=== PATIENT | male | born 1980 | race American Indian/Alaskan Native ===

== ENCOUNTER 2018-01-14 16:47 | Emergency (ER) | payer MEDICAID ==
[2018-01-14 17:23] VITALS: BP 137/89
--- NOTE | 2018-01-14 19:48 | Emergency Department Report ---
ED Back Pain/Injury HPI - General Chief Complaint: Back Pain/Injury Stated Complaint: BACK PAIN Time Seen by Provider: 01/14/18 19:40 Source: patient, EMS Limitations: No Limitations - History of Present Illness Initial Comments: 37-year-old morbid obese male comes in per EMS stating he was unremarkable S trying to get to his orthopedist M.D. and got off on the wrong stop and began complaining of upper back pain as he was walking. Patient has a past medical history of ADHD, borderline diabetes hypertension and CHF. Patient reports that he is on metoprolol lisinopril Lasix. He denies any recent falls or recent traumas. He reports he does suffer from chronic back pain for years. He was going to the orthopedist to be stated for a electric wheelchair. MD Complaint: back pain -: year(s) Similar Symptoms Previously: Yes Severity scale (0 -10): 10 Quality: dull, aching Consistency: intermittent Improves With: other (rest) Worsens With: movement Associated Symptoms: denies other symptoms - Related Data Previous Rx's Medication Instructions Recorded Last Taken Type Ibuprofen [Motrin 800 MG tab] 800 mg PO Q8HR PRN #30 tablet 01/14/18 Unknown Rx Allergies Allergy/AdvReac Type Severity Reaction Status Date / Time No Known Allergies Allergy Verified 01/14/18 17:23 ED Review of Systems ROS: Stated complaint: BACK PAIN Other details as noted in HPI Musculoskeletal: back pain ED Past Medical Hx - Past Medical History Hx Hypertension: Yes Hx Diabetes: Yes (borderline) Additional medical history: CHF, - Surgical History Past Surgical History?: No - Social History Smoking Status: Current Every Day Smoker - Medications Home Medications: Home Medications Medication Instructions Recorded Confirmed Last Taken Type Ibuprofen [Motrin 800 MG tab] 800 mg PO Q8HR PRN #30 tablet 01/14/18 Unknown Rx ED Physical Exam - General Limitations: No Limitations General appearance: alert, in no apparent distress - ENT ENT exam: Present: mucous membranes moist - Neck Neck exam: Present: full ROM. Absent: lymphadenopathy - Respiratory Respiratory exam: Present: normal lung sounds bilaterally. Absent: respiratory distress - Cardiovascular Cardiovascular Exam: Present: regular rate, normal rhythm. Absent: systolic murmur, diastolic murmur, rubs, gallop - Back Exam Back exam: Present: tenderness - Neurological Exam Neurological exam: Present: alert (made thoracic tenderness), oriented X3 ED Course Vital Signs 01/14/18 17:20 Temperature 98.4 F Pulse Rate 75 Respiratory 18 Rate Blood Pressure 137/89 O2 Sat by Pulse 96 Oximetry ED Medical Decision Making - Medical Decision Making Patient has been evaluated by this provider in fast track. Patient complains of chronic back pain with no recent trauma. Patient is morbid obese with a BMI of 65 weight of 451. Discussed the patient I will give him a Toradol injection and he will be discharged on ibuprofen with follow-up to his orthopedist. Critical care attestation.: If time is entered above; I have spent that time in minutes in the direct care of this critically ill patient, excluding procedure time. ED Disposition Clinical Impression: Lumbago Qualifiers: Chronicity: chronic Back pain laterality: bilateral Sciatica presence: unspecified whether sciatica present Qualified Code(s): M54.5 - Low back pain; G89.29 - Other chronic pain Disposition: - TO HOME OR SELFCARE Is pt being admited?: No Does the pt Need Aspirin: No Condition: Stable Instructions: Chronic Back Pain (ED) Additional Instructions: Please take pain medication as needed. It's very important for you to follow- up with orthopedist as they're the ones that will manage her chronic back pain. Prescriptions: Ibuprofen [Motrin 800 MG tab] 800 mg PO Q8HR PRN #30 tablet PRN Reason: Pain , Severe (7-10) Referrals: PRIMARY MD COOKIE [Primary Care Provider] - 3-5 Days ZIGGY LUND MD [Staff Physician] - 3-5 Days
[2018-01-14] MEDS ORDERED: TORADOL IM ONE (19:49)
== END 2018-01-14 20:36 | disposition home or self-care (01) ==
LOC: ED 16:47
DX: G89.29 Other chronic pain (principal); M54.5 Low back pain; E11.9 Type 2 diabetes mellitus without complications; I50.9 Heart failure, unspecified; F17.200 Nicotine dependence, unspecified, uncomplicated
CPT/HCPCS: 96372; 99283; J1885

== ENCOUNTER 2018-01-31 10:56 | Emergency (ER) | payer MEDICAID, MEDICARE ==
[2018-01-31 12:03] LABS: Basophils % (Auto) 0.3 % (0.0-1.8); Eosinophils # (Auto) 0.1 K/mm3 (0.0-0.4); Eosinophils % (Auto) 0.9 % (0.0-4.3); Hematocrit 35.2 % (35.5-45.6); Hemoglobin 11.3 gm/dl (11.8-15.2); Lymphocytes # (Auto) 1.1 K/mm3 (1.2-5.4); Lymphocytes % (Auto) 15.8 % (13.4-35.0); Mean Corpuscular HGB Conc 32 % (32-34); Mean Corpuscular Volume 73 fl (84-94); Monocytes # (Auto) 0.8 K/mm3 (0.0-0.8); Monocytes % (Auto) 11.5 % (0.0-7.3); Platelet Count 174 K/mm3 (140-440); Red Blood Count 4.86 M/mm3 (3.65-5.03); Red Cell Distribution Width 18.9 % (13.2-15.2)
[2018-01-31 12:19] LABS: BUN/Creatinine Ratio 20; Blood Urea Nitrogen 12 mg/dL (9-20); Hemolysis Index 9; Mean Corpuscular Hemoglobin 23 pg (28-32)
--- NOTE | 2018-01-31 12:41 | XRay Report ---
Chest 2 score History: Shortness of breath. Findings: Marked cardiomegaly. Trachea is midline. No consolidation, pneumothorax or pleural effusion. Impression: Marked cardiomegaly. No acute lung changes.
--- NOTE | 2018-01-31 14:33 | Emergency Department Report ---
ED General Adult HPI - General Chief complaint: Dyspnea/Respdistress Stated complaint: GIGI Time Seen by Provider: 01/31/18 13:03 Source: patient, EMS (ems notes not available at time of chart dictation), RN notes reviewed Mode of arrival: Stretcher Limitations: Other (patient is a poor historian) - History of Present Illness Initial comments: This is a 37-year-old male, who is unknown to this provider, reports a past medical history of borderline diabetes, hypertension and congestive heart failure, does not know his ejection fraction, thinks he may have sleep apnea but is not sure, believes that he is asleep study performed in [place] but doesn't know what the results are, and 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 Presents to the ER with a complaint of shortness of breath. It is painless. It is intermittent. It been on and off for a few weeks. Patient reports no exacerbating or relieving factors. He denies DVT, pulmonary embolus risk factors. He denies pain. He admits to cough. Denies cocaine use. -: Gradual Consistency: intermittent Improves with: none Worsens with: none Associated Symptoms: cough, shortness of breath. denies: confusion, chest pain , diaphoresis, fever/chills, headaches, loss of appetite, malaise, nausea/ vomiting, rash, seizure, syncope, weakness - Related Data Previous Rx's Medication Instructions Recorded Last Taken Type Ibuprofen [Motrin 800 MG tab] 800 mg PO Q8HR PRN #30 tablet 01/14/18 Unknown Rx Furosemide [Lasix] 20 mg PO QDAY #30 tablet 01/31/18 Unknown Rx Allergies Allergy/AdvReac Type Severity Reaction Status Date / Time aspirin Allergy Vomiting Verified 01/31/18 11:08 ED Review of Systems ROS: Stated complaint: GIGI Other details as noted in HPI Constitutional: denies: fever Eyes: denies: eye discharge Respiratory: shortness of breath Cardiovascular: edema. denies: chest pain Gastrointestinal: denies: abdominal pain Genitourinary: denies: dysuria Musculoskeletal: arthralgia Skin: denies: lesions Neurological: denies: weakness ED Past Medical Hx - Past Medical History Hx Hypertension: Yes Hx Diabetes: Yes (borderline) Additional medical history: CHF, - Social History Smoking Status: Former Smoker Substance Use Type: None - Medications Home Medications: Home Medications Medication Instructions Recorded Confirmed Last Taken Type Ibuprofen [Motrin 800 MG tab] 800 mg PO Q8HR PRN #30 tablet 01/14/18 Unknown Rx Furosemide [Lasix] 20 mg PO QDAY #30 tablet 01/31/18 Unknown Rx ED Physical Exam - General Limitations: No Limitations General appearance: alert, in no apparent distress, obese - Head Head exam: Present: atraumatic, normocephalic - Eye Eye exam: Present: normal appearance, EOMI. Absent: nystagmus - ENT ENT exam: Present: normal exam, normal orophraynx, mucous membranes moist, normal external ear exam - Neck Neck exam: Present: normal inspection, full ROM. Absent: tenderness, meningismus - Respiratory Respiratory exam: Present: decreased breath sounds. Absent: respiratory distress - Cardiovascular Cardiovascular Exam: Present: regular rate, normal rhythm, normal heart sounds. Absent: bradycardia, tachycardia, irregular rhythm, systolic murmur, diastolic murmur, rubs, gallop - GI/Abdominal GI/Abdominal exam: Present: soft, normal bowel sounds. Absent: distended, tenderness, guarding, rebound, rigid, pulsatile mass - Rectal Rectal exam: Present: deferred - Extremities Exam Extremities exam: Present: normal inspection, full ROM (compartments are soft. There is no long bony tenderness. The pelvis is stable.), normal capillary refill, pedal edema, other (1+ pitting edema in the bilateral lower extremities. There is no palpable cord. 2+ pulses noted in the bilateral upper , lower extremities.). Absent: calf tenderness - Back Exam Back exam: Present: normal inspection, full ROM. Absent: paraspinal tenderness , vertebral tenderness - Neurological Exam Neurological exam: Present: alert, oriented X3, CN II-XII intact, normal gait, other (Extraocular movements intact. Tongue midline. No facial droop. Facial sensation intact to light touch in the V1, V2, V3 distribution bilaterally. 5 and 5 strength in 4 extremities.. Sensation is intact to light touch in 4 extremities.). Absent: motor sensory deficit - Psychiatric Psychiatric exam: Present: normal affect, normal mood - Skin Skin exam: Present: warm, dry, intact, normal color. Absent: rash ED Course Vital Signs 01/31/18 11:14 Temperature 97.9 F Pulse Rate 71 Respiratory 20 Rate Blood Pressure 139/81 O2 Sat by Pulse 97 Oximetry ED Medical Decision Making - Lab Data Result diagrams: 01/31/18 11:33 01/31/18 11:33 Vital Signs 01/31/18 11:14 Temperature 97.9 F Pulse Rate 71 Respiratory 20 Rate Blood Pressure 139/81 O2 Sat by Pulse 97 Oximetry Labs 01/31/18 01/31/18 11:33 11:33 WBC 7.2 RBC 4.86 Hgb 11.3 L Hct 35.2 L MCV 73 L MCH 23 L MCHC 32 RDW 18.9 H Plt Count 174 Lymph % (Auto) 15.8 [place] % (Auto) 11.5 H Eos % (Auto) 0.9 Baso % (Auto) 0.3 Lymph # 1.1 L [place] # 0.8 Eos # 0.1 Baso # 0.0 Seg Neutrophils % 71.5 H Seg Neutrophils # 5.1 Sodium 143 Potassium 4.0 Chloride 104.4 Carbon Dioxide 27 Anion Gap 16 BUN 12 Creatinine 0.6 L Estimated GFR > 60 BUN/Creatinine Ratio 20 Glucose 79 Calcium 9.0 NT-Pro-B Natriuret Pep 592.5 H - EKG Data -: EKG Interpreted by Me - EKG Data 01/31/18 14:35 Normal sinus, 78 bpm, normal axis, premature ventricular contractions, QTC prolonged, abnormal EKG, not a STEMI. - Radiology Data Radiology results: report reviewed, image reviewed X-ray of the chest is negative for acute disease, cardiomegaly is appreciated, no obvious infiltrates noted. No pneumothorax is noted. - Medical Decision Making Differential diagnosis, including but not limited to: Obstructive sleep apnea, pulmonary hypertension, right-sided heart failure, dependent edema, obesity hypoventilation syndrome, multifactorial shortness of breath Assessment and plan: 37-year-old male with no pulmonary embolus or DVT risk factors, who is low risk by well's criteria, who is perc negative, who is quite obese and most likely has obstructive sleep apnea, probable pulmonary hypertension, probable RV dysfunction, with shortness of breath for weeks. He is afebrile with reassuring vital signs, saturating well, has no crackles or rales, and is walking around the ER in no distress. Given his physical exam and duration of symptoms as well as what appears to be unlimited exercise tolerance, it is my opinion that the patient does not require admission to the hospital or any other advanced diagnostics. He can be started on Lasix, and I stressed the importance of outpatient follow-up with cardiology as well as sleep medicine. Patient is noted to be playing on a cellphone multiple times in no distress, and he is also noted to be running down recipes. At this point time, there is no objective indication to admit the patient to the hospital, he is medically suitable for discharge at this time. Critical care attestation.: If time is entered above; I have spent that time in minutes in the direct care of this critically ill patient, excluding procedure time. ED Disposition Clinical Impression: Dyspnea Disposition: DC-01 TO HOME OR SELFCARE Is pt being admited?: No Does the pt Need Aspirin: No Condition: Stable Instructions: Heart Failure (ED), Leg Edema (ED) Additional Instructions: Avoid consumption of foods that are high in salt content. Take the Lasix water pill as directed. Follow up with any illicit cardiology groups within the next 2 weeks. Follow up with pulmonary/sleep medicine group within the next 2 weeks. Return to the ER right away with new pain, worsened pain, migration of pain, fevers, chills, lethargy, irritability, projectile vomiting, change in mental status, confusion, inability tolerate liquid feeds. Prescriptions: Furosemide [Lasix] 20 mg PO QDAY #30 tablet Referrals: DEXTER VIGIL NP-C [Primary Care Provider] - 3-5 Days [facility] [Provider Group] - 3-[address] [facility] [Provider Group] - 3-5 Days [facility] [Provider Group] - 3-5 Days
[2018-01-31 15:26] VITALS: BP 138/86
== END 2018-01-31 15:00 | disposition home or self-care (01) ==
LOC: ED 10:56
DX: R06.00 Dyspnea, unspecified (principal); I11.0 Hypertensive heart disease with heart failure; G47.30 Sleep apnea, unspecified; Z87.891 Personal history of nicotine dependence; Z88.6 Allergy status to analgesic agent
CPT/HCPCS: 36415; 71046; 80048; 83880; 85025; 93005; 93010

== ENCOUNTER 2019-01-07 07:14 | Emergency (ER) | payer MEDICARE ==
[2019-01-07 07:55] VITALS: BP 101/81
--- NOTE | 2019-01-07 08:34 | Emergency Department Report ---
ED General Adult HPI - General Chief complaint: Chest Pain Stated complaint: CHEST PAIN Time Seen by Provider: 01/07/19 08:14 Source: patient, EMS Mode of arrival: Stretcher Limitations: No Limitations - History of Present Illness Initial comments: This is a 38-year-old man who presents to the emergency department for somewhat unknown reasons. His history of psychiatric disorder and has previously treated [place] [facility]. He states he has needed his course of care at [facility] and they "didn't do nothing". He is not acutely psychotic delusional nor hallucinating. He is not suicidal or violent. He additionally states that he just got out of [facility] where he was treated for congestive heart failure. He now claims he was not given any medications on discharge. He denies signing out AMA. This story obviously lacks a high degree of credibility. In any case patient is able to tell me he does have dyspnea on exertion or leg swelling. However is fully ambulatory about the emergency department. He is not acutely dyspneic at rest. It would appear he has a history of a nonischemic cardiomyopathy and likely noncompliance with medication. He states he is from [facility] and has no primary care doctor here. A preliminary evaluation of the patient's he is fluid overloaded. He is likely candidate for admission for congestive heart failure. I told patient that we would work him up and it is not unlikely that admission would be required and lower we would treat his problem to the best of our ability it was safe to discharge him. He had already told the nurse that he wanted to sign out AMA. He really related this to me because he states he is going to [facility] because his foster care therapist is they are. Thus the patient is medically stable and has ample mental capacity to decline further medical screening and stabilization at this facility. He will not being involuntarily confine tear. He is signing out AGAINST MEDICAL ADVICE. -: week(s) Location: chest (states occasionally has chest pain had some brief discomfort this morning but not) Severity scale (0 -10): 0 Consistency: now resolved Improves with: none Worsens with: none Associated Symptoms: shortness of breath Treatments Prior to Arrival: none - Related Data Previous Rx's Medication Instructions Recorded Last Taken Type Ibuprofen [Motrin 800 MG tab] 800 mg PO Q8HR PRN #30 tablet 01/14/18 Unknown Rx Furosemide [Lasix] 20 mg PO QDAY #30 tablet 01/31/18 Unknown Rx Allergies Allergy/AdvReac Type Severity Reaction Status Date / Time aspirin Allergy Vomiting Verified 01/31/18 11:08 ED Review of Systems ROS: Stated complaint: CHEST PAIN Other details as noted in HPI Constitutional: denies: chills, fever Eyes: denies: eye pain, eye discharge, vision change ENT: denies: ear pain, throat pain Respiratory: shortness of breath, SOB with exertion. denies: cough, wheezing Cardiovascular: chest pain. denies: palpitations Endocrine: no symptoms reported Gastrointestinal: denies: abdominal pain, nausea, diarrhea Genitourinary: denies: urgency, dysuria Musculoskeletal: denies: back pain, joint swelling, arthralgia Skin: denies: rash, lesions Neurological: denies: headache, weakness, paresthesias Psychiatric: denies: anxiety, depression Hematological/Lymphatic: denies: easy bleeding, easy bruising ED Past Medical Hx - Past Medical History Hx Hypertension: Yes Hx Diabetes: Yes (borderline) Additional medical history: CHF, - Surgical History Additional Surgical History: cardiac stentsx2 - Social History Smoking Status: Never Smoker - Medications Home Medications: Home Medications Medication Instructions Recorded Confirmed Last Taken Type Ibuprofen [Motrin 800 MG tab] 800 mg PO Q8HR PRN #30 tablet 01/14/18 Unknown Rx Furosemide [Lasix] 20 mg PO QDAY #30 tablet 01/31/18 Unknown Rx ED Physical Exam - General Limitations: No Limitations, Altered Mental Status General appearance: alert, in no apparent distress, obese - Head Head exam: Present: atraumatic, normocephalic - Eye Eye exam: Present: normal appearance - ENT ENT exam: Present: mucous membranes moist - Neck Neck exam: Present: normal inspection - Respiratory Respiratory exam: Present: normal lung sounds bilaterally. Absent: respiratory distress - Cardiovascular Cardiovascular Exam: Present: regular rate, normal rhythm. Absent: systolic murmur, diastolic murmur, rubs, gallop - GI/Abdominal GI/Abdominal exam: Present: soft, distended, normal bowel sounds. Absent: tenderness - Rectal Rectal exam: Present: deferred - Extremities Exam Extremities exam: Present: other (2+ pitting leg edema) - Back Exam Back exam: Present: normal inspection - Neurological Exam Neurological exam: Present: alert, oriented X3, CN II-XII intact, normal gait. Absent: motor sensory deficit - Psychiatric Psychiatric exam: Present: normal affect, normal mood - Skin Skin exam: Present: warm, dry, intact, normal color. Absent: rash ED Course Vital Signs 01/07/19 01/07/19 07:54 07:55 Temperature 97.7 F Pulse Rate 104 H Respiratory 20 20 Rate Blood Pressure 101/81 [Right] O2 Sat by Pulse 100 99 Oximetry ED Medical Decision Making - Radiology Data Atrial fibrillation rapid ventricular response ectopic beats and nonspecific ST- T wave changes Critical care attestation.: If time is entered above; I have spent that time in minutes in the direct care of this critically ill patient, excluding procedure time. ED Disposition Clinical Impression: Atrial fibrillation with RVR, Congestive cardiomyopathy, Medical non- compliance, Psychiatric disorder Type 2 diabetes mellitus Qualifiers: Diabetes mellitus jail insulin use: unspecified intermediate card tender insulin use status Diabetes mellitus complication status: without complication Qualified Code(s): E11.9 - Type 2 diabetes mellitus without complications Disposition: DC-07 LEFT AGAINST MED ADVICE Is pt being admited?: No Does the pt Need Aspirin: No Condition: Stable Instructions: Diabetes Mellitus Type 2 in Adults (ED) Time of Disposition: 08:37
== END 2019-01-07 08:51 | disposition left against medical advice (07) ==
LOC: ED 07:14
DX: I48.0 Paroxysmal atrial fibrillation (principal); I42.0 Dilated cardiomyopathy; I11.0 Hypertensive heart disease with heart failure; I50.9 Heart failure, unspecified; E11.9 Type 2 diabetes mellitus without complications; Z95.1 Presence of aortocoronary bypass graft; Z79.899 Other long term (current) drug therapy; Z88.6 Allergy status to analgesic agent
CPT/HCPCS: 93005; 93010; 99284